=== PATIENT | female | born 1995 | race Two or more races ===

== ENCOUNTER 2019-03-05 07:34 | Inpatient (IN) | payer OTHER ==
[~2019-03-05] VITALS: Ht 152.4 cm; Wt 2.3 kg
[2019-03-05] MEDS ORDERED: PRENATAL CAPLE1 EAC1 PO (09:41)
== END 2019-03-08 14:52 | DRG 788 ==
LOC: LDR 07:34 → SURG-SUITE 07:34
PROVIDERS: ADMIT Obstetrics & Gynecology
PROC: 3E033VJ Introduction of Other Hormone into Peripheral Vein, Percutaneous Approach (ICD-10-PCS; 2019-03-05)
PROC: 4A1HXCZ Monitoring of Products of Conception, Cardiac Rate, External Approach (ICD-10-PCS; 2019-03-05)
PROC: 10D00Z1 Extraction of Products of Conception, Low, Open Approach (ICD-10-PCS; principal; 2019-03-05 23:00)
DX: O61.0 Failed medical induction of labor (principal); O62.0 Primary inadequate contractions; Z3A.39 39 weeks gestation of pregnancy; Z22.330 Carrier of Group B streptococcus; Z37.0 Single live birth